=== PATIENT | female | born 1965 | race African-American/Black ===

== ENCOUNTER 2019-08-11 15:51 | Emergency (ER) | payer OTHER | END 2019-08-11 20:20 | LOC: JER 15:51 ==

== ENCOUNTER 2020-05-27 19:36 | Emergency (ER) | payer OTHER ==
[2020-05-27] MEDS ORDERED: ONDANSETRON *ODT* 4 MG TABLET SL ONE (19:52)
[2020-05-27 20:11] VITALS: BMI 25.7
[2020-05-27] MEDS ORDERED: ONDANSETRON *ODT* 4 MG TABLET ONE (20:39)
[2020-05-27] MEDS ORDERED: MAG HYDROX/AL HYDROX/SIMETH 30 ML UNIT-DOSE CUP PO ONE (20:42)
[2020-05-27] MEDS ORDERED: FAMOTIDINE 20 MG/50 ML IVPB 20 MG/50 ML MG IVPB ONE ×2 (20:42→20:48)
[2020-05-27] MEDS ORDERED: SODIUM CHLORIDE 1,000 ML IV STA (20:46)
[2020-05-27] MEDS ORDERED: MAG HYDROX/AL HYDROX/SIMETH 30 ML UNIT-DOSE CUP ONE (20:48)
[2020-05-27 21:16] LABS: BASO % 1.4 % (0-2.0); EOS % 3.1 % (0-4.5); HEMATOCRIT 38.9 % (32.4-45.2); HEMOGLOBIN 12.8 GM/dL (10.7-15.3); LYMPH % 47.8 % (8-40); MCH 32.8 pg (25.7-33.7); MEAN CELL VOLUME 99.7 fl (80-96); MEAN PLT VOLUME 8.1 fl (7.5-11.1); MONO % 7.4 % (3.8-10.2); NEUT % 40.3 % (42.8-82.8); PLATELET COUNT 239 K/MM3 (134-434); RBC 3.91 M/mm3 (3.60-5.2); RDW 13.5 % (11.6-15.6); WHITE BLOOD COUNT 6.5 K/mm3 (4.0-10.0)
[2020-05-27 21:24] LABS: INR 0.99 (0.83-1.09); PROTHROMBIN TIME (PATIENT) 11.7 SEC (9.7-13.0)
[2020-05-27 21:27] LABS: ACTIVATED PTT 33.2 SECONDS (25.2-36.5)
[2020-05-27 21:50] LABS: ALBUMIN 3.8 g/dl (3.4-5.0); ALK PHOS 99 U/L (45-117); ANION GAP 6 MMOL/L (8-16); BILIRUBIN,TOTAL 0.3 mg/dL (0.2-1); BLOOD UREA NITROGEN 20.8 mg/dL (7-18); CALCIUM 9.1 mg/dL (8.5-10.1); CHLORIDE 108 mmol/L (98-107); CO2 26 mmol/L (21-32); CREATININE 0.9 mg/dL (0.55-1.3); GLUCOSE,RANDOM 84 mg/dL (74-106); LIPASE 98 U/L (73-393); MAGNESIUM 2.3 mg/dL (1.8-2.4); POTASSIUM 5.5 mmol/L (3.5-5.1); SGOT/AST 33 U/L (15-37); SGPT/ALT 25 U/L (13-61); SODIUM 139 mmol/L (136-145); TOT PROT 7.5 g/dl (6.4-8.2)
[2020-05-27] MEDS ORDERED: SODIUM POLYSTYRENE SULFONATE 15 GM/60 ML BOTTLE PO ONE (21:54)
[2020-05-27] MEDS ORDERED: SODIUM POLYSTYRENE SULFONATE 15 GM/60 ML BOTTLE ONE (22:02)
[2020-05-27 22:50] VITALS: BP 111/77; PULSE 62; TEMP 98.3
== END 2020-05-27 22:50 | disposition home or self-care (01) ==
LOC: JER 19:36
PROC: 3E033GC Introduction of Other Therapeutic Substance into Peripheral Vein, Percutaneous Approach (ICD-10-PCS; principal; 2020-05-27)
PROC: 3E0337Z Introduction of Electrolytic and Water Balance Substance into Peripheral Vein, Percutaneous Approach (ICD-10-PCS; principal; 2020-05-27)
DX: K29.70 Gastritis, unspecified, without bleeding (principal); R07.9 Chest pain, unspecified
CPT/HCPCS: 36415; 71045-TC-FY; 80053; 82550; 82553; 83690; 83735; 84484; 85025; 85610; 85730; 93005; 93010; 99285-25

== ENCOUNTER 2020-06-12 11:28 | Emergency (ER) | payer OTHER ==
--- NOTE | 2020-06-12 11:35 | PDOC ---
Rapid Medical Evaluation Chief Complaint: Pain Time Seen by Provider: 06/12/20 11:32 Medical Evaluation: Allergies Allergy/AdvReac Type Severity Reaction Status Date / Time No Known Allergies Allergy Verified 06/12/20 11:32 06/12/20 11:33 I have performed a brief in-person evaluation of this patient. The patient presents with a chief complaint of: epigastric pain and lightheadedness since yesterday. report epigastric pain started 2 weeks ago. Denies fever, chills, N/V, diarrhea, constipation. Denies any h/o GERD Pertinent physical exam findings: A&O x 3 in NAD. Afebrile I have ordered the following: cbc, cmp, lipase, abd U/S The patient will proceed to the ED for further evaluation. Discharge Disposition - Diagnosis Epigastric pain - Discharge Dispostion Condition at time of disposition: Stable - Referrals - Patient Instructions - Post Discharge Activity
[2020-06-12 11:36] VITALS: TEMP 98.2; BMI 26.5
[2020-06-12 12:16] LABS: BASO % 0.5 % (0-2.0); EOS % 1.9 % (0-4.5); HEMATOCRIT 38.4 % (32.4-45.2); HEMOGLOBIN 12.8 GM/dL (10.7-15.3); LYMPH % 43.7 % (8-40); MCH 33.2 pg (25.7-33.7); MCHC 33.4 g/dl (32.0-36.0); MEAN CELL VOLUME 99.4 fl (80-96); MONO % 5.7 % (3.8-10.2); NEUT % 48.2 % (42.8-82.8); PLATELET COUNT 226 K/MM3 (134-434); RBC 3.87 M/mm3 (3.60-5.2); RDW 13.6 % (11.6-15.6); WHITE BLOOD COUNT 5.8 K/mm3 (4.0-10.0)
[2020-06-12 12:46] LABS: ALBUMIN 3.6 g/dl (3.4-5.0); ALK PHOS 101 U/L (45-117); ANION GAP 6 MMOL/L (8-16); BILIRUBIN,TOTAL 0.2 mg/dL (0.2-1); BLOOD UREA NITROGEN 16.6 mg/dL (7-18); CALCIUM 8.9 mg/dL (8.5-10.1); CHLORIDE 111 mmol/L (98-107); CO2 24 mmol/L (21-32); CREATININE 0.8 mg/dL (0.55-1.3); GLUCOSE,RANDOM 101 mg/dL (74-106); LIPASE 89 U/L (73-393); SGOT/AST 19 U/L (15-37); SGPT/ALT 29 U/L (13-61); SODIUM 142 mmol/L (136-145); TOT PROT 7.3 g/dl (6.4-8.2)
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
[2020-06-12] MEDS ORDERED: MAG HYDROX/AL HYDROX/SIMETH 30 ML UNIT-DOSE CUP PO ONE (13:09)
[2020-06-12] MEDS ORDERED: MAG HYDROX/AL HYDROX/SIMETH 30 ML UNIT-DOSE CUP ONE (13:11)
[2020-06-12 13:25] VITALS: BP 113/74; PULSE 76
--- NOTE | 2020-06-12 13:31 | EKG ---
Test Reason : Blood Pressure : / mmHG Vent. Rate : 056 BPM Atrial Rate : 056 BPM P-R Int : 144 ms QRS Dur : 090 ms QT Int : 430 ms P-R-T Axes : 064 -04 019 degrees QTc Int : 414 ms SINUS BRADYCARDIA POSSIBLE LEFT ATRIAL ENLARGEMENT BORDERLINE ECG WHEN COMPARED WITH ECG OF 27-MAY-2020 20:46, NO SIGNIFICANT CHANGE WAS FOUND Confirmed by Hayes Desai ([id number]) on 06/12/2020 1:31:24 PM Referred By: Confirmed By:Hayes Desai
== END 2020-06-12 14:09 | disposition home or self-care (01) ==
LOC: JER 11:28
DX: R10.13 Epigastric pain (principal)
CPT/HCPCS: 36415; 71046-TC-FY; 76705-TC; 80053; 83690; 84484; 85025; 93005; 93010; 99285-25

== ENCOUNTER 2020-08-30 14:24 | Emergency (ER) | payer OTHER ==
[2020-08-30 14:30] VITALS: BP 128/88; PULSE 85; TEMP 97.6; BMI 26.5
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
[2020-08-30] MEDS ORDERED: KETOROLAC TROMETHAMINE 60 MG/2 ML VIAL IM ONE (16:17)
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
[2020-08-30] MEDS ORDERED: KETOROLAC TROMETHAMINE 60 MG/2 ML VIAL ONE (16:41)
== END 2020-08-30 16:49 | disposition home or self-care (01) ==
LOC: JERFT 14:24
PROC: 3E0233Z Introduction of Anti-inflammatory into Muscle, Percutaneous Approach (ICD-10-PCS; principal; 2020-08-30)
DX: M54.2 Cervicalgia (principal); M54.6 Pain in thoracic spine
CPT/HCPCS: 70450-TC; 99285-25

== ENCOUNTER 2020-09-14 19:06 | Emergency (ER) | payer OTHER ==
[2020-09-14 19:20] VITALS: BP 133/96; PULSE 68; TEMP 98.3; BMI 25.7
--- OUTSIDE RECORDS SUMMARY | 2020-09-14 19:34 | XMS ---
:1965 Author Organization [facility] Support Name Relationship Address Phone FILLER FEEDER Unavailable Unavailable Unavailable [facility] Unavailable [address] [place] [address] [employer] [address] [phone] [place] [address] THOM STUART [place] [address] THOM STUART Mother [place] [address] Re-disclosure Warning The records that you are about to access may contain information from federally- assisted alcohol or drug abuse programs. If such information is present, then the following federally mandated warning applies: This information has been disclosed to you from records protected by federal confidentiality rules (42 CFR part 2). The federal rules prohibit you from making any further disclosure of this information unless further disclosure is expressly permitted by the written consent of the person to whom it pertains or as otherwise permitted by 42 CFR part 2. A general authorization for the release of medical or other information is NOT sufficient for this purpose. The Federal rules restrict any use of the information to criminally investigate or prosecute any alcohol or drug abuse patient.The records that you are about to access may contain highly sensitive health information, the redisclosure of which is protected by Article 27-F of the [facility] Public Health law. If you continue you may haveaccess to information: Regarding HIV / AIDS; Provided by facilities licensed or operated by the [facility] Office of Mental Health; or Provided by the [facility] Office for People With Developmental Disabilities. If such information is present, then the following [facility] mandated warning applies: This information has been disclosed to you from confidential records which are protected by state law. State law prohibits you from making any further disclosure of this information without the specific written consent of the person to whom it pertains, or as otherwise permitted by law. Any unauthorized further disclosure in violation of state law may result in a fine or nursing home sentence or both. A general authorization for the release of medical or other information is NOT sufficient authorization for further disclosure. Encounters Encounter Providers Location Date Indications Data Source(s ) Emergency H 09/10/2019 11:45:00 [facility] EDT - 09/10/2019 [facility] 01:14:00 PM EDT Patient discharged. Insurance Providers Payer name Policy type Policy ID Covered Covered libertarian's Policy P adrian / Coverage libertarian ID relationship to Marquez Inf ormation type marquez PENDING [id number] SP [id number] WC/NF ONLY CHAVO [id number] SP [id number] 400 HEALTH NON CAP CHAVO W [id number] 01 [id number] 400 [facility] [place] Problems, Conditions, and Diagnoses Code Display Name Description Problem Type Effective Dates Data Source(s) H72.92 Unspecified UNSPECIFIED Diagnosis 09/10/2019 [facility] perforation of PERFORATION OF 11:45:00 AM EDT [facility] tympanic membrane, TYMPANIC left ear MEMBRANE, LEFT EAR H92.02 Otalgia, left ear OTALGIA, LEFT EAR Diagnosis 09/10/2019 [facility] 11:45:00 AM EDT Medical C enter Social History Code Duration Value Status Description Data Source(s ) Smoking 09/10/2019 12:23:00 Former Smoker completed Former Smoker [facility] Smoking 09/10/2019 12:15:00 Former Smoker completed Former Smoker [facility] Smoking 09/10/2019 11:55:00 Former Smoker completed Former Smoker [facility] Vital Signs ID Date Data Source UNK Name Value Range Interpretation Code Description Data Source(s) Respiratory rate 17 /min 17 /min [facility] Body weight 67.532845 kg 67.888518 kg [facility] Body temperature 36.710201 36.323253 [facility] Respiratory rate 18 /min 18 /min [facility] Oxygen saturation 99 % 99 % [facility] Kamaljit davila in Arterial blood [facility] by Pulse oximetry Heart rate 86 /min 86 /min [facility] Diastolic blood 89 mm[Hg] 89 mm[Hg] [facility] Systolic blood 152 mm[Hg] 152 mm[Hg] [facility]
[2020-09-14] MEDS ORDERED: ACETAMINOPHEN 500 MG TABLET (FP) PO ONE (19:59)
[2020-09-14] MEDS ORDERED: ACETAMINOPHEN 325 MG TABLET (FP) ONE (20:06)
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
[2020-09-14] MEDS ORDERED: METHOCARBAMOL 500 MG TABLET PO ONE (20:33)
[2020-09-14] MEDS ORDERED: METHOCARBAMOL 500 MG TABLET ONE (20:41)
[2020-09-14 21:07] LABS: BASO % 0.5 % (0-2.0); EOS % 2.2 % (0-4.5); HEMATOCRIT 39.1 % (32.4-45.2); HEMOGLOBIN 12.9 GM/dL (10.7-15.3); LYMPH % 48.3 % (8-40); MCH 32.2 pg (25.7-33.7); MCHC 32.8 g/dl (32.0-36.0); MEAN PLT VOLUME 7.6 fl (7.5-11.1); MONO % 5.5 % (3.8-10.2); NEUT % 43.5 % (42.8-82.8); PLATELET COUNT 244 K/MM3 (134-434); RBC 3.99 M/mm3 (3.60-5.2); RDW 12.9 % (11.6-15.6)
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
[2020-09-14 21:38] LABS: URINE APPEARANCE CLEAR; URINE BILIRUBIN NEGATIVE (NEGATIVE); URINE COLOR YELLOW; URINE GLUCOSE (UA) NEGATIVE (NEGATIVE); URINE KETONE NEGATIVE (NEGATIVE); URINE LEUK ESTERASE NEGATIVE (NEGATIVE); URINE NITRITE NEGATIVE (NEGATIVE); URINE PROTEIN NEGATIVE (NEGATIVE); URINE UROBILINOGEN 0.2 mg/dL (0.2-1.0)
[2020-09-14 21:48] LABS: ALBUMIN 3.9 g/dl (3.4-5.0); ALK PHOS 115 U/L (45-117); ANION GAP 6 MMOL/L (8-16); BILIRUBIN,TOTAL 0.3 mg/dL (0.2-1); BLOOD UREA NITROGEN 16.1 mg/dL (7-18); CALCIUM 9.2 mg/dL (8.5-10.1); CHLORIDE 107 mmol/L (98-107); CO2 29 mmol/L (21-32); CREATININE 0.8 mg/dL (0.55-1.3); GLUCOSE,RANDOM 79 mg/dL (74-106); MAGNESIUM 2.2 mg/dL (1.8-2.4); POTASSIUM 4.1 mmol/L (3.5-5.1); SGOT/AST 18 U/L (15-37); SGPT/ALT 23 U/L (13-61); SODIUM 141 mmol/L (136-145); TOT PROT 7.7 g/dl (6.4-8.2)
--- NOTE | 2020-09-15 13:49 | EKG ---
Test Reason : Blood Pressure : / mmHG Vent. Rate : 064 BPM Atrial Rate : 064 BPM P-R Int : 140 ms QRS Dur : 092 ms QT Int : 416 ms P-R-T Axes : 063 000 031 degrees QTc Int : 429 ms NORMAL SINUS RHYTHM WITH SINUS ARRHYTHMIA INCOMPLETE RIGHT BUNDLE BRANCH BLOCK CANNOT RULE OUT ANTERIOR INFARCT , AGE UNDETERMINED ABNORMAL ECG WHEN COMPARED WITH ECG OF 12-JUN-2020 12:26, NO SIGNIFICANT CHANGE WAS FOUND Confirmed by JEFF INGRAM MD ([id number]) on 09/15/2020 1:49:33 PM Referred By: Confirmed By:JEFF INGRAM MD
== END 2020-09-14 23:05 | disposition home or self-care (01) ==
LOC: JER 19:06
DX: R07.9 Chest pain, unspecified (principal)
CPT/HCPCS: 36415; 71046-TC-FY; 76604; 76705-TC; 80053; 81003; 82550; 83735; 84484; 85025; 93005; 93010; 93308; 99285-25

== ENCOUNTER 2021-04-17 19:37 | Observation (INO) | payer OTHER ==
[2021-04-17 19:46] VITALS: BMI 24.9
[2021-04-17] MEDS ORDERED: ACETAMINOPHEN 500 MG TABLET (FP) PO ONE (20:35)
[2021-04-17 20:55] LABS: BASO % 0.3 % (0-2.0); EOS % 2.8 % (0-4.5); HEMATOCRIT 37.6 % (32.4-45.2); HEMOGLOBIN 12.6 GM/dL (10.7-15.3); LYMPH % 43.3 % (8-40); MCH 33.7 pg (25.7-33.7); MCHC 33.4 g/dl (32.0-36.0); MEAN CELL VOLUME 100.8 fl (80-96); MEAN PLT VOLUME 7.9 fl (7.5-11.1); MONO % 5.8 % (3.8-10.2); NEUT % 47.8 % (42.8-82.8); PLATELET COUNT 264 K/MM3 (134-434); RBC 3.73 M/mm3 (3.60-5.2); RDW 14.4 % (11.6-15.6); WHITE BLOOD COUNT 6.2 K/mm3 (4.0-10.0)
[2021-04-17 21:12] LABS: PROTHROMBIN TIME (PATIENT) 12.3 SEC (9.7-13.0)
[2021-04-17 21:14] LABS: ACTIVATED PTT 31.5 SECONDS (25.2-36.5)
[2021-04-17 21:27] LABS: CHLORIDE 108 mmol/L (98-107); SODIUM 143 mmol/L (136-145)
[2021-04-17 21:29] LABS: ALBUMIN 3.7 g/dl (3.4-5.0); ANION GAP 6 MMOL/L (8-16); BLOOD UREA NITROGEN 20.7 mg/dL (7-18); CO2 29 mmol/L (21-32); GLUCOSE,RANDOM 89 mg/dL (74-106); MAGNESIUM 2.1 mg/dL (1.8-2.4)
[2021-04-17 21:31] LABS: SGOT/AST 12 U/L (15-37); SGPT/ALT 23 U/L (13-61)
[2021-04-17 21:32] LABS: CREATININE 0.7 mg/dL (0.55-1.3)
[2021-04-17 21:34] LABS: ALK PHOS 83 U/L (45-117); BILIRUBIN,TOTAL 0.2 mg/dL (0.2-1); TOT PROT 7.1 g/dl (6.4-8.2)
[2021-04-17] MEDS ORDERED: ASPIRIN 81 MG CHEWABLE TABLETS PO ONE (22:19)
[2021-04-17] MEDS ORDERED: ASPIRIN 81 MG CHEWABLE TABLETS ONE (22:22)
[2021-04-17] MEDS ORDERED: IBUPROFEN 600 MG TABLET (FP) PO ONE (23:58)
[2021-04-18] MEDS ORDERED: ACETAMINOPHEN 325 MG TABLET (FP) ONE (00:17)
[2021-04-18] MEDS ORDERED: IBUPROFEN 600 MG TABLET (FP) PO ONE (00:18)
[2021-04-18 06:48] VITALS: BP 116/78; PULSE 74; TEMP 97.4
== END 2021-04-18 06:48 | disposition home or self-care (01) | DRG 203 ==
LOC: JER 19:37 → JERBED 20:47 → INTOOBSV 20:47
PROVIDERS: ADMIT Hospitalist; ATTEND Hospitalist
DX: R07.89 Other chest pain (principal); I45.10 Unspecified right bundle-branch block; M17.11 Unilateral primary osteoarthritis, right knee; Z21 Asymptomatic human immunodeficiency virus [HIV] infection status; M79.89 Other specified soft tissue disorders
CPT/HCPCS: 36415; 71046-TC-FY; 80053; 82550; 83735; 84484; 85025; 85379; 85610; 85730; 93005; 93010; 93970-TC; 99285-25; C9803; G0378; U0003; U0005

== ENCOUNTER 2021-12-29 18:05 | Emergency (ER) | payer OTHER ==
[2021-12-29 18:10] VITALS: BP 130/82; PULSE 88; TEMP 98; BMI 26.5
== END 2021-12-29 19:42 | disposition home or self-care (01) ==
LOC: JER 18:05
DX: J06.9 Acute upper respiratory infection, unspecified (principal); R05.9 Cough, unspecified; R09.81 Nasal congestion; Z11.52 Encounter for screening for COVID-19
CPT/HCPCS: 71046-TC-FY; 99284-25; C9803; U0003; U0005

== ENCOUNTER 2022-11-27 18:39 | Emergency (ER) | payer OTHER ==
[2022-11-27 19:13] VITALS: BP 112/64; RESP 17; BMI 25.7
[2022-11-27] MEDS ORDERED: ACETAMINOPHEN 325 MG TABLET (FP) PO ONE (21:55)
[2022-11-27] MEDS ORDERED: IBUPROFEN 600 MG TABLET (FP) PO ONE ×2 (21:55→21:56)
[2022-11-27] MEDS ORDERED: ACETAMINOPHEN 325 MG TABLET (FP) ONE (21:56)
[2022-11-27 22:27] VITALS: PULSE 100; TEMP 101.8
== END 2022-11-27 22:27 | disposition home or self-care (01) ==
LOC: JER 18:39
DX: J09.X2 Influenza due to identified novel influenza A virus with other respiratory manifestations (principal); R50.9 Fever, unspecified; R05.1 Acute cough; R51.9 Headache, unspecified
CPT/HCPCS: 0241U-QW; 71046-TC-FY; 99284-25